=== PATIENT | female | born 1980 | race Caucasian/White ===

== ENCOUNTER 2021-01-27 16:19 | Emergency (ER) | payer MEDICAID, OTHER ==
[~2021-01-27] VITALS: Ht 162.6 cm; Wt 68.0 kg
[2021-01-27 16:22] VITALS: BP 118/76
--- NOTE | 2021-01-27 16:31 | NUR ---
PATIENT AMBULATED WITH STEADY GAIT TO BED 2.
[2021-01-27] MEDS ORDERED: KETOROLAC 30 MG/ML VIAL IM ONE (16:45)
[2021-01-27] MEDS ORDERED: cefTRIAXone 1,000 MG in LIDOCAINE MPF 1% 2.1 ML IM ONE (16:45)
--- NOTE | 2021-01-27 16:45 | NUR ---
SEFERINO Caldera is evaluating patient at bedside.
[2021-01-27] MEDS ORDERED: LIDOCAINE MPF 1% 5 ML ONE (16:51)
[2021-01-27] MEDS ORDERED: cefTRIAXone 1,000 MG VIAL ONE (16:51)
--- NOTE | 2021-01-27 16:55 | NUR ---
40 y/o female coming in from home with c/c spider bite. Pt states spider bites to left leg and right knee two days ago while sleeping. She states she came in today due to increased pain and swelling. Pt sates pain 7/10, burning/constant, non-radiating. Pt denies fever, body aches, chills, SOB. Dry drainage noted to left leg. Pt denies taking any medications prior to arrival. Pt placed onto desk monitor, bed locked in lowest position. PMH/Meds: Denies Allergies: Sulfa Sx: denies
--- NOTE | 2021-01-27 17:15 | NUR ---
Patient states positive relief after medication; pain 0/10 at this time. Equal chest rise and fall. VSS. Bed locked in lowest position, side rails x 1, call light in reach.
[2021-01-27] MEDS ORDERED: CEPH500C16 PO (17:16)
[2021-01-27] MEDS ORDERED: IBUP-2213 PO (17:16)
[2021-01-27] MEDS ORDERED: CLIN-178 PO (17:16)
[2021-01-27 17:25] VITALS: BP 121/73
--- NOTE | 2021-01-27 17:25 | NUR ---
Patient discharged with v/s stable. Written and verbal after care instructions given and explained. Patient alert, oriented and verbalized understanding of instructions. Ambulatory with steady gait. All questions addressed prior to discharge. ID band removed. Patient advised to follow up with PMD. Rx of Cephalexin, Clindamycin Hcl, Ibuprofen given. Patient educated on indication of medication including possible reaction and side effects. Opportunity to ask questions provided and answered.
== END 2021-01-27 17:25 | disposition home or self-care (01) ==
LOC: MED 16:19
DX: L03.115 Cellulitis of right lower limb (principal); F17.210 Nicotine dependence, cigarettes, uncomplicated; Z88.2 Allergy status to sulfonamides; Z79.899 Other long term (current) drug therapy
CPT/HCPCS: 96372; 99284; J0696; J1885; J2001